=== PATIENT | female | born 1975 | race Caucasian/White ===

== ENCOUNTER → 2024-11-20 06:34 | Day surgery (SDC) | payer OTHER, SELFPAY | END | disposition home or self-care (01) | LOC: GI 06:34 | PROVIDERS: ATTENDING PHYSICIAN Internal Medicine Gastroenterology | PROC: 0DJ08ZZ Inspection of Upper Intestinal Tract, Via Natural or Artificial Opening Endoscopic (ICD-10-PCS; 2024-11-20) | DX: K74.60 Unspecified cirrhosis of liver (principal); Z53.09 Procedure and treatment not carried out because of other contraindication | CPT/HCPCS: 43235 ==